=== PATIENT | female | born 1950 | race Caucasian/White ===

== ENCOUNTER 2018-01-09 20:31 | Emergency (ER) | payer OTHER, MEDICARE ==
[2018-01-09 20:40] VITALS: BP 126/84
--- NOTE | 2018-01-09 21:07 | EDPHY ---
H & P Time Seen by Provider: 01/09/18 20:53 HPI/ROS: HPI Left eye vision loss. 67-year-old female by private vehicle with her . They just flew in from [place]. The patient reports that at approximately 8 o'clock she developed a sensation of which she describes as black silly string weaving through her left visual field. She reports that this turned callejas after about 15-20 minutes and now she reports she is unable to see much of anything out of her left eye describes it is trying to look through Vaseline. No headache. No other symptoms. She states that she has had ocular migraines in the past but nothing similar to this. No foreign body sensation. No history of ocular trauma. ROS: Constitutional: No fever, no chills. No weakness. Eyes: No discharge. As above. ENT: No sore throat. No nasal congestion or rhinorrhea. Respiratory: No cough. No shortness of breath. Cardiac: No chest pain, no palpitations. Gastrointestinal: No abdominal pain, no vomiting, no diarrhea. Genitourinary: No hematuria. No dysuria or increased frequency with urination. Musculoskeletal: No back pain. No neck pain. No myalgias or arthralgias. Skin: No rashes. Neurological: No headache. No focal weakness or altered sensation. Past medical history: L5-S1 fusion, migraine headaches, aneurysm, traumatic brain injury and skull fracture in 1977. Social history: Nonsmoker, here with her . No alcohol. Physical Exam: General Appearance: Alert, no distress. This patient is responding to questions appropriately and in full sentences. This patient appears well- hydrated and well-nourished. Eyes: Pupils equal and round no pallor or injection. Visual acuities: Right eye-20/25. Left I can't see chart. Abdominal scope exam with limited dilation , probable retinal detachment. Respiratory: There are no retractions, lungs are clear to auscultation with good air movement bilaterally. Cardiovascular: Regular rate and rhythm. No murmur. Gastrointestinal: Abdomen is soft and nontender, no masses, bowel sounds normal. No focal tenderness at McBurney's point. No Mccallum sign. Neurological: Motor sensory function is grossly intact. Cranial nerves are normal. Gait is normal. Skin: Warm and dry, no rashes. Musculoskeletal: Neck is supple and nontender. Extremities are symmetrical. All joints range without pain or impingement. Psychiatric: No agitation. No depression. Database: EKG: Imaging: Procedures: Emergency department course: Triage vital signs reviewed and are normal. Ophthalmology paged at 9:[address] José Will. We were not able to get a hold of Dr. José Will. 9:55 p.m., spoke with healthcare customer service Dr. Mendoza, discussed in detail. She states that this is likely a vitreous hemorrhage. She states that she will see this patient at 9:30 a.m. in her office for evaluation further management. She states that if it was possibly a retinal detachment the management plan would not change and she feels comfortable with the patient going home and then seen her in the office at 9:30 a.m.. 10:00 p.m., the patient was re-evaluated. No change in her vision. Plan for ophthalmology follow-up tomorrow as above discussed with her and her in detail. They do feel comfortable going home. They understand the follow-up plan and word ago. Return to emergency department precautions were reviewed with them. All of their questions were answered. The patient was discharged in good condition with her . Differential Diagnosis: The differential diagnosis on this patient includes but is not limited to retinal detachment, vitreous humor detachment, vitreous hemorrhage. Ocular trauma, retained foreign body, CVA unlikely. This represents a partial list of diagnoses considered. These considerations are based on history, physical exam , past history, reassessment and diagnostic testing. Smoking Status: Never smoked Constitutional: Initial Vital Signs Temperature (C) 36.6 C 01/09/18 20:32 Heart Rate 67 01/09/18 20:32 Respiratory Rate 16 01/09/18 20:32 Blood Pressure 126/84 H 01/09/18 20:32 O2 Sat (%) 97 01/09/18 20:32 O2 Delivery Mode Room Air Allergies/Adverse Reactions: levofloxacin [From Levaquin] Allergy (Verified 01/09/18 20:40) piperacillin [From Zosyn] Allergy (Verified 01/09/18 20:40) tazobactam [From Zosyn] Allergy (Verified 01/09/18 20:40) Home Medications: Medication Instructions Recorded Firocet 01/09/18 Lyrica 01/09/18 Promethazine/Phenyleph/Codeine 01/09/18 Sodium Bicarbonate 01/09/18 Departure - Departure Disposition: Home, Routine, Self-Care Clinical Impression: Vision loss of left eye, Vitreous hemorrhage of left eye Condition: Good Instructions: Blurred Vision (ED) Additional Instructions: Read and follow provided instructions. Follow-up with Ophthalmology, Dr. Hubbard tomorrow morning, 9:30 a.m., at her [place] office, on [facility] at [address] [place] [address]. Her phone number is [phone]. I have discussed your case in detail with her. She is expecting you at 9:30 a.m.. Return to the emergency department for worsening symptoms, pain or other serious concerns. Referrals: Claritza Hubbard MD [Non Staff Provider (MD)] - As per Instructions
== END 2018-01-09 22:21 | disposition home or self-care (01) ==
DX: H43.12 Vitreous hemorrhage, left eye (principal); H54.62 Unqualified visual loss, left eye, normal vision right eye